=== PATIENT | male | born 1945 | race Caucasian/White ===

== ENCOUNTER 2024-03-22 06:49 | Day surgery (SDC) | payer MEDICARE, BC ==
[~2024-03-22] VITALS: Ht 172.7 cm; Wt 102.0 kg
[2024-03-22] MEDS ORDERED: LR 1,000 ML IV SCH (07:00)
[2024-03-22] MEDS ORDERED: Lidocaine PF 2% (20 MG/ML) 5 ML VIAL ONE (11:24)
[2024-03-22] MEDS ORDERED: fentaNYL 50 MCG/ML 2 ML VIAL ONE ×2 (11:24→12:51)
[2024-03-22] MEDS ORDERED: dexAMETHasone 10 MG/ML VIAL ONE (11:24)
[2024-03-22] MEDS ORDERED: Ondansetron 4 MG/2 ML VIAL ONE (11:24)
[2024-03-22 11:26] VITALS: BP 143/58; PULSE 66; TEMP 98
[2024-03-22] MEDS ORDERED: ZYLOPRIM 300MG300 MG PO (11:42)
[2024-03-22] MEDS ORDERED: AMARYL 2MG T2 MG/TAB PO (11:42)
[2024-03-22] MEDS ORDERED: BYSTOLIC20 MG PO (11:43)
[2024-03-22] MEDS ORDERED: PRINIVIL40 MG PO (11:44)
[2024-03-22] MEDS ORDERED: LIPITOR20 MG PO (11:44)
[2024-03-22] MEDS ORDERED: HYTRIN 5MG C5 MG/CAP PO (11:44)
[2024-03-22] MEDS ORDERED: hydrALAZINE 20 MG/ML 1 ML VIAL IV PRN (11:45)
[2024-03-22] MEDS ORDERED: Ondansetron 4 MG/2 ML VIAL IV PRN (11:45)
[2024-03-22] MEDS ORDERED: HYDROmorphone 1 MG/1 ML SYRINGE [PACU/SDC ONLY] IV PRN (11:45)
[2024-03-22] MEDS ORDERED: fentaNYL 50 MCG/ML 1 ML SYRINGE/VIAL [PACU/SDC ONLY] IV PRN (11:45)
[2024-03-22] MEDS ORDERED: MINOXIDIL 2.5 PO (11:45)
[2024-03-22] MEDS ORDERED: droPERidol 2.5 MG/ML 2 ML VIAL IV PRN (11:45)
[2024-03-22] MEDS ORDERED: CIALIS2.5 MG PO (11:46)
[2024-03-22] MEDS ORDERED: ALDACTONE 25MG25 M1 PO ×2 (11:46→11:49)
[2024-03-22] MEDS ORDERED: NATURE'S BLEND100 M2 PO (11:47)
[2024-03-22] MEDS ORDERED: VITAMIN FLUSH-F1 CAP PO (11:48)
[2024-03-22] MEDS ORDERED: ASPIRIN E.C. 8181 MG PO (11:48)
[2024-03-22] MEDS ORDERED: LASIX 20MG TABL20 MG PO (11:49)
--- NOTE | 2024-03-22 11:51 | NUR ---
PATIENT WAS ADMITTED TO ROOM 6 AMBULATORY FROM RADIOLOGY AND ORIENTED TO ROOM. NOTED BANDAID ON NOSE. STATES HAS BIOPSY DONE AND IS NOW HERE TO HAVE SKIN CANCER REMOVED FROM THE AREA. ORIENTED TO ROOM. SURGERY CONSENT WAS SIGNED AND IVF INFUSING. CALL LIGHT IN REACH. SPOUSE IN ROOM.
[2024-03-22] MEDS ORDERED: ePHEDrine 50 MG/ML VIAL ONE (12:24)
[2024-03-22] MEDS ORDERED: Bacitracin Topical Oint 30 GM TUBE TOP ONE (12:42)
[2024-03-22] MEDS ORDERED: Lidocaine 1% w EPI (1:100,000) 20 ML Multi-Dose VIAL SQ ONE ×2 (12:42)
[2024-03-22 15:20] VITALS: BP 155/69; PULSE 75; TEMP 97
[2024-03-22 15:35] VITALS: BP 149/72; PULSE 73
[2024-03-22 15:46] VITALS: TEMP 97.4
[2024-03-22 15:50] VITALS: BP 110/71; PULSE 77
--- NOTE | 2024-03-22 16:30 | NUR ---
1520: REPORT RECEIVED FROM PAYTON TELLEZ. TRANSPORTED PT FROM PACU TO [facility] VIA CART. VSS. PETROLEUM DRESSING TO BRIDGE OF NOSE, EBONIE AND SUTURES IN PLACE. BLOODY DRAINAGE DRIPPING FROM INCISION. PT DENIES NAUSEA AND PAIN. TOLERATING ICE CHIPS. REQUESTING MUFFIN. NO FURTHER NEEDS NOTED. RESTING IN COT, CALL LIGHT IN REACH. , ELMO, AT BEDSIDE. 1535: PT ALERT AND ORIENTED. VSS. DENIES PAIN OR NAUSEA. TOLERATING MUFFIN AND WATER. BLOODY DRAINAGE STILL NOTED AT THIS TIME. NO FURTHER NEEDS NOTED. RESTING IN COT. CALL LIGHT IN REACH. , ELMO, AT BEDSIDE. 1540: DR. BEDOLLA NOTIFIED OF BLOODY DRAINAGE AND STATED THIS WAS NORMAL. FR. BEDOLLA ALSO STATED SHE CALLED PT'S PRESCRIPTIONS TO [facility]. 1550: PT ALERT AND ORIENTED. VSS. DENIES NAUSEA AND STATED HE HAS SOME SLIGHT DISCOMFORT. IV DC'D AT THIS TIME. PT TO ASSIST WITH DRESSING. 1600: PT AMBULATED INDEPENDENTLY TO BATHROOM. 1605: DISCHARGE INSTRUCTIONS DONE AT THIS TIME. QUESTIONS WELCOMED AND ANSWERED. DISCHARGE PAPERWORK GIVEN TO PT. 1615: PT AMBULATED INDEPENDENTLY TO WHEELCHAIR.
== END 2024-03-22 16:15 | disposition home or self-care (01) ==
LOC: SDCO 06:49
DX: C43.31 Malignant melanoma of nose (principal); I10 Essential (primary) hypertension; E11.8 Type 2 diabetes mellitus with unspecified complications; Z79.84 Long term (current) use of oral hypoglycemic drugs; Z79.899 Other long term (current) drug therapy; Z87.891 Personal history of nicotine dependence
CPT/HCPCS: J1100; J2405; J2704; J3010; J7120